=== PATIENT | male | born 1930 | race Caucasian/White ===

== ENCOUNTER 2017-03-01 11:30 | Emergency (ER) | payer MEDICARE ==
[~2017-03-01 11:30] MED LIST: ALLOPURINOL100 MG PO; ARICEPT10 M2 PO; CALCITRIOL0.25 MC1 PO; CALCIUM500 M3 PO; CIPROFLOXACIN250 MG PO; COUMADIN5 M1 PO; COZAAR100 M1 PO; HYDROCHLOROTHIA25 M1 PO; HYDROCHLOROTHIA25 MG PO; KEFLEX500 MG PO; LISINOPRIL10 MG; LISINOPRIL10 MG PO; LOPRESSOR25 MG/TA1 PO; LOPRESSOR50 MG; LOPRESSOR50 MG PO; LOW DOSE ASPIRI81 M3 PO; MUCINEX600 M1 PO; MULTIVITAMINS1 EAC6 PO; NORCO 5-325 TA1 EACH PO; OMEPRAZOLE20 M3 PO; PAIN MEDICINE PO; PREDNISONE10 M1 PO; PRESERVISION A1 EAC5 PO; PRILOSEC20 MG PO; ROBITUSSIN100 MG/51 PO; STOOL SOFTENER100 M3 PO; TYLENOL PM EX-1 EAC4 PO; TYLENOL325 MG PO; VICODIN 5/500 T1 TAB PO; VITAMIN D-1000 UNIT/ PO; VITAMIN D-32000 UNI4 PO; VITAMIN D2000 UNI1 PO
[2017-03-01] MEDS ORDERED: ZYLOPRIM100 M1 PO (11:59)
== END 2017-03-01 15:42 ==
LOC: EDMED 11:30
DX: S46.812A Strain of other muscles, fascia and tendons at shoulder and upper arm level, left arm, initial encounter (principal); F03.90 Unspecified dementia, unspecified severity, without behavioral disturbance, psychotic disturbance, mood disturbance, and anxiety; K21.9 Gastro-esophageal reflux disease without esophagitis; Z79.899 Other long term (current) drug therapy; W17.89XA Other fall from one level to another, initial encounter; Y92.019 Unspecified place in single-family (private) house as the place of occurrence of the external cause

== ENCOUNTER 2017-06-26 09:53 | Emergency (ER) | payer MEDICARE, OTHER ==
[~2017-06-26] VITALS: Ht 180.3 cm; Wt 86.7 kg
[~2017-06-26 09:53] MED LIST changes: +ZYLOPRIM100 M1 PO
[2017-06-26 10:50] LABS: BASO % 0.2 % (0-2); EOS % 0.6 % (0-7); EOSINOPHIL ABSOLUTE COUNT 0.1 tho/cmm (0.0-0.7); HCT-HEMATOCRIT 43.6 % (36.0-53.5); IMMATURE GRANULOCYTES ABSOLUTE 0.03 tho/cmm (0-0.03); IMMATURE GRANULOCYTES PERCENT 0.3 % (0-0.3); LYMPH % 14.6 % (20-45); LYMPH ABSOLUTE COUNT 1.5 tho/cmm (0.8-4.5); MCHC MEAN CORPUSCULAR HGB CONC 34.4 % (32.0-36.0); MEAN PLATELET VOLUME 10.5 cmc (9.4-12.4); MONOCYTE ABSOLUTE COUNT 1.4 tho/cmm (0.0-1.2); NEUTROPHIL ABSOLUTE COUNT 7.5 tho/cmm (1.6-8.0); NEUTROPHIL-AUTOMATED 7.5 tho/cmm (1.6-8.0); NEUTROPHILS % 71.3 % (40-80); PLATELET COUNT 191 tho/cmm (150-450); RED BLOOD COUNT 4.69 mil/cmm (4.40-5.70); RED CELL DISTRIBUTION WIDTH 13.2 % (12.4-16.4); WHITE BLOOD COUNT 10.5 tho/cmm (4.0-10.0)
[2017-06-26] MEDS ORDERED: TYLENOL325 M2 PO (10:52)
[2017-06-26] MEDS ORDERED: THERA-D2000 UNIT PO (10:53)
[2017-06-26] MEDS ORDERED: CERTAVITE-ANTI1 EACH PO (11:14)
[2017-06-26 11:17] LABS: ANION GAP 12 mmol/L (0-20); BLOOD UREA NITROGEN 34 mg/dl (6-24); CARBON DIOXIDE-VENOUS 27 mmol/L (22-32); CHLORIDE 104 mmol/l (96-110); CREATININE 1.87 mg/dl (0.60-1.30); GLUCOSE 113 mg/dL (70-110); POTASSIUM 4.3 mmol/L (3.7-5.1); SODIUM 139 mmol/L (135-145); eGFR VALUE FOR BLACK 37 mL/Min
[2017-06-26] MEDS ORDERED: COLCRYS0.6 M1 PO (11:48)
== END 2017-06-26 12:33 ==
LOC: EDMED 09:53
PROVIDERS: Physician Assistant
DX: M10.9 Gout, unspecified (principal); I12.9 Hypertensive chronic kidney disease with stage 1 through stage 4 chronic kidney disease, or unspecified chronic kidney disease; N18.9 Chronic kidney disease, unspecified; F03.90 Unspecified dementia, unspecified severity, without behavioral disturbance, psychotic disturbance, mood disturbance, and anxiety; Z87.891 Personal history of nicotine dependence; Z79.899 Other long term (current) drug therapy